=== PATIENT | female | born 1985 | race Caucasian/White ===

== ENCOUNTER → 2018-02-23 18:10 | Observation (INO) ==
[2018-02-23 15:42] LABS: Basophils % 0.4 %; Eosinophils # 0.1 K/mcL (0.0-0.6); Eosinophils % 1.1 %; Hematocrit 36.1 % (35.3-44.9); Hemoglobin 12.6 g/dL (11.5-15.4); Immature Granulocytes % 0.5 % (0-4); Lymphocytes # 1.8 K/mcL (0.6-4.6); Lymphocytes % 15.4 %; Mean Corpuscular HGB Conc 34.9 g/dL (31.6-35.5); Mean Corpuscular Hemoglobin 31.7 pg (28.0-33.3); Mean Corpuscular Volume 90.7 fL (83.0-100.0); Mean Platelet Volume 11.5 fL (9.4-12.4); Monocytes # 0.9 K/mcL (0.0-1.3); Monocytes % 8.1 %; Neutrophils # 8.5 K/mcL (1.6-8.9); Platelet Count 222 K/mcL (140-400); Red Blood Count 3.98 M/mcL (3.82-4.97); Segmented Neutrophils % 74.5 %
[2018-02-23 16:23] LABS: Protein/Creatinine Ratio,Urine 0.14 mg/mg (0.00-0.20)
[2018-02-23 16:24] LABS: Alanine Aminotransferase 10 Units/L (7-52); Aspartate Amino Transferase 16 Units/L (13-39); BUN/Creatinine Ratio 13 (6-26); Blood Urea Nitrogen 7 mg/dL (6-20); Lactate Dehydrogenase 183 Units/L (140-271); Uric Acid 5.4 mg/dL (2.3-7.6); eGFR For African Americans > 60 (> 60); eGFR For Non-African Americans > 60 (> 60)
[2018-02-23 16:36] LABS: Amphetamine Screen,Urine Negative ng/mL (Cutoff=1000); Barbiturate Screen,Urine Negative ng/mL (Cutoff=200); Benzodiazepines Screen,Urine Negative ng/mL (Cutoff=200); Cannabinoid Screen,Urine Negative ng/mL (Cutoff = 50); Cocaine Screen,Urine Negative ng/mL (Cutoff= 300); Opiate Screen,Urine Negative ng/mL (Cutoff=300); Phencyclidine Screen,Urine Negative ng/mL (Cutoff=25)
--- NOTE | 2018-02-23 16:43 | OB/GYN Progress Note ---
Date of Encounter: 02/23/18 Time of Encounter: 16:34 - Assessment and Plan (1) 38 weeks gestation of Current Visit: Yes Status: Acute Signs and symptoms of preeclampsia discussed Labor precautions given Discharge home with instructions to return tomorrow morning for induction of labor (2) Elevated blood pressure affecting in third trimester, antepartum Current Visit: Yes Status: Acute Return tomorrow morning at 8 AM for induction of labor Subjective - Subjective Principal diagnosis: PIH eval Interval history: Ms. Medina presents from the office for PIH evaluation. She denies headache, blurry vision, right upper quadrant pain. In the office her blood pressures were 150/86 and 144/82. She had a BPP of 8 out of 8 her last BRAEDEN was 27. Antepartum ROS: movement normal, no loss of fluid, no vaginal bleeding Objective - Vital Signs Vital Signs: Intake and Output 02/23/18 02/23/18 02/23/18 07:59 15:59 23:59 Other: Weight 155 kg Patient Weight 02/23/18 23:59 Weight 155 kg - Exam FHR: category 1 Auscultation: bilateral: normal Abdomen: Present: normal appearance, soft, gravid Uterus: Present: normal, firm - Labs Labs: Abnormal lab results WBC 11.4 K/mcL (4.3-11.1) H 02/23/18 14:21 Creatinine 0.54 mg/dL (0.60-1.20) L 02/23/18 14:21
[~2018-02-23 18:10] MED LIST: Lidocaine -MPF 1% 2 ML VIAL ONE
== END | disposition home or self-care (01) ==
LOC: 1NENULAB
PROVIDERS: ADMIT Obstetrics & Gynecology; ATTEND Obstetrics & Gynecology

== ENCOUNTER 2018-02-24 11:09 | Inpatient (IN) ==
[2018-02-24] MEDS ORDERED: Naloxone 0.4 MG/ML INJ IVP PRN (11:55)
[2018-02-24] MEDS ORDERED: Metoclopramide 10 MG/2 ML VIAL IVP PRN (11:55)
[2018-02-24] MEDS ORDERED: Lidocaine 1% 20 ML MDV INFILT PRN (11:55)
[2018-02-24] MEDS ORDERED: Famotidine 20 MG/2 ML VIAL IVP PRN (11:55)
[2018-02-24] MEDS ORDERED: *HR* Nalbuphine 10 MG/ML AMPUL IVP PRN (11:55)
[2018-02-24] MEDS ORDERED: D5% in Lactated Ringers 1,000 ML IVC SCH (12:00)
[2018-02-24] MEDS ORDERED: Oxytocin 20 units/ LR 1000 mL 20 UNIT/1,000 ML BAG IVC SCH (12:00)
[2018-02-24 12:29] LABS: Basophils # 0.1 K/mcL (0.0-0.2); Basophils % 0.4 %; Eosinophils # 0.1 K/mcL (0.0-0.6); Eosinophils % 0.9 %; Hematocrit 37.2 % (35.3-44.9); Hemoglobin 12.6 g/dL (11.5-15.4); Immature Granulocytes % 0.4 % (0-4); Lymphocytes # 1.8 K/mcL (0.6-4.6); Lymphocytes % 15.9 %; Mean Corpuscular HGB Conc 33.9 g/dL (31.6-35.5); Mean Corpuscular Hemoglobin 31.4 pg (28.0-33.3); Mean Corpuscular Volume 92.8 fL (83.0-100.0); Mean Platelet Volume 11.9 fL (9.4-12.4); Monocytes # 0.9 K/mcL (0.0-1.3); Monocytes % 7.8 %; Neutrophils # 8.4 K/mcL (1.6-8.9); Platelet Count 200 K/mcL (140-400); Red Blood Count 4.01 M/mcL (3.82-4.97); Segmented Neutrophils % 74.6 %
[2018-02-24 13:09] LABS: Alanine Aminotransferase 10 Units/L (7-52); Aspartate Amino Transferase 19 Units/L (13-39); BUN/Creatinine Ratio 12 (6-26); Blood Urea Nitrogen 7 mg/dL (6-20); Lactate Dehydrogenase 185 Units/L (140-271); eGFR For African Americans > 60 (> 60); eGFR For Non-African Americans > 60 (> 60)
[2018-02-24 13:10] LABS: Protein/Creatinine Ratio,Urine 0.12 mg/mg (0.00-0.20)
[2018-02-24] MEDS ORDERED: miSOPROStol 100 MCG TABLET PO SCH ×2 (13:35→17:00)
[2018-02-24 14:19] LABS: Amphetamine Screen,Urine Negative ng/mL (Cutoff=1000); Barbiturate Screen,Urine Negative ng/mL (Cutoff=200); Benzodiazepines Screen,Urine Negative ng/mL (Cutoff=200); Cannabinoid Screen,Urine Negative ng/mL (Cutoff = 50); Cocaine Screen,Urine Negative ng/mL (Cutoff= 300); Opiate Screen,Urine Negative ng/mL (Cutoff=300); Phencyclidine Screen,Urine Negative ng/mL (Cutoff=25)
--- NOTE | 2018-02-24 16:07 | OB/GYN History & Physical ---
Date of Encounter: 02/24/18 Time of Encounter: 16:02 Assessment and Plan (1) 38 weeks gestation of Current visit: No Status: Acute (2) Elevated blood pressure affecting in third trimester, antepartum Current visit: No Status: Acute Admit labor and delivery Cytotec 2 doses PIH labs negative Nubain and epidural as desired Due to abdominal appearance in recent cellulitic diagnosis and completing oral antibiotics, will place on Ancef Plan of care discussed with Dr. Hermann Sharma History of Present Illness Chief complaint: induction of labor HPI: Ms. Medina is a 32 year old female 38+5 weeks gestation presents to labor and delivery for induction of labor for gestational hypertension and preeclamptic symptoms. Patient reports good movement, denies any vaginal bleeding or leaking of fluid. complicated by maternal obesity, polyhydramnios last BRAEDEN 27 on 02/23, and maternal lower abdomen cellulitis infection area patient just finished 14 day course of Keflex yesterday. Labs: O+, rubella immune, GBS negative, all other serologies negative Past Med Surg Social Fam HX - Past Medical History Medical history: hypertension, other Additional medical history: hx of gallstones during this . HX of chronic HTN. [place] teeth extraction appx 10 years ago Psychiatric history: no psych history - Past Surgical History Surgical History: no surgical history - Social History Smoking Status: Never smoker Smokeless Tobacco Status: No Alcohol use: none Drug use: none - Family History Mother Hx Family Endocrine Disorder: Yes (Type II diabetes) Obstetrical History - Pregnancies : 1 Para: 0 Term: 0 : 0 Ab's: 0 Livin Medications and Allergies Tylenol 500 mg PO DANIELLA PRN 07/18/17 [History] DiphenhydraMINE [Benadryl] 25 mg PO HS PRN 02/23/18 [History] Vit Calc,Iron,Folic [ Vitamins] 1 each PO DAILY 02/23/18 [ History] 3 Allergy/AdvReac Type Severity Reaction Status Date / Time No Known Allergies Allergy Verified 02/23/18 14:59 Exam - Vital Signs Vital signs: Initial Vital Signs Temp Pulse Resp BP 98.1 F 100 20 137/79 02/24/18 12:02 02/24/18 12:02 02/24/18 12:02 02/24/18 12:02 - Constitutional Constitutional: well developed, well nourished, morbidly obese - Neck Neck exam: full ROM - Lungs Respiratory exam: CTAB - Cardiovascular Cardiovascular exam: RRR - Abdomen Abdomen: Present: gravid, non tender - Extremities Extremities exam: normal capillary refill, normal inspection - Cervix Dilation: 1 Effacement: 60 Station: -2 - Uterus Uterus exam: Present: normal size, normal contour - Comments Comments: Lower abdomen reddened with tight tissue with edema Results Result Diagrams: 02/24/18 12:15 02/24/18 12:15 Abnormal lab results WBC 11.3 K/mcL (4.3-11.1) H 02/24/18 12:15 Creatinine 0.57 mg/dL (0.60-1.20) L 02/24/18 12:15 All other labs normal. - VTE Reasons for not Prescribing Prophylaxis: Treatment not Indicated - Low risk for VTE
[2018-02-24] MEDS ORDERED: ceFAZolin 2,000 MG in 0.9 % Sodium Chloride 100 ML IVPB ONE (16:35)
[2018-02-24] MEDS ORDERED: EPHEDrine 50 MG/ML VIAL IVP PRN (16:57)
--- NOTE | 2018-02-24 16:57 | Anesthesia Evaluation PreOp ---
Date of Encounter: 02/24/18 Time of Encounter: 16:54 - Past History Planned Operation: GREGG Cardiac History: HTN (during this . PIH eval yesterday. Induced today. 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 Other Medical History: Denies Any Significant HX Anesthesia History: No Prior Anesthetic Complications, Past Anesthesia : Yes Alcohol Use: none Drug use: none Medications and Allergies Tylenol 500 mg PO DANIELLA PRN 07/18/17 [History] DiphenhydraMINE [Benadryl] 25 mg PO HS PRN 02/23/18 [History] Vit Calc,Iron,Folic [ Vitamins] 1 each PO DAILY 02/23/18 [ History] 3 Allergy/AdvReac Type Severity Reaction Status Date / Time No Known Allergies Allergy Verified 02/23/18 14:59 - Meds/Allergy Pre-op Review Medications Reviewed: Yes Allergies Reviewed: Yes Beta Blockers on Current Med List: No Anesthesia Results - Labs 02/24/18 12:15 02/24/18 12:15 Anesthesia Exam O2 Sat Height 1.65 m Weight 154.4 kg Vital Signs Temp Pulse Resp BP 98.1 F 100 20 137/79 02/24/18 12:02 02/24/18 12:02 02/24/18 12:02 02/24/18 12:02 NPO (# of Hours): 4 Pain Scale: 1 Pain Scale Used: Numeric (1 - 10) - HEENT Pupil (Motor): Pupils equal Mallampati: III Teeth: Normal Oral Opening: Greater than 3 - BEAM BUILDER HELPER LOC: Oriented BEAM BUILDER HELPER Motor: Normal RUE, Normal LUE, Normal RLE, Normal LLE, Normal Face [employer] Sensory: Normal: RUE, LUE, RLE, LLE, Face - Cardiac Rhythm: Regular Murmur: None JVD: No Carotid Bruit: No - Pulmonary Breath Sounds: bilateral Clear Respiratory Effort: Symmetrical Anesthesia Assess/Plan ASA Score: 3 (BMI 56.6) Modified [place] Scale for Level of Consciousness: Cooperative, oriented, and tranquil Anesthetic Plan: General (plan b), Regional (plan a) Autologous Blood: Yes Monitoring Plan: Standard Monitors
[2018-02-24] MEDS ORDERED: Epidural Premix (fent/bupiv) 110 ML EP SCH (17:00)
--- NOTE | 2018-02-24 19:30 | OB Labor Progress Note ---
Date of Encounter: 02/24/18 Time of Encounter: 19:26 Labor Progress Note - Subjective Subjective: Pt states feeling more contractions - Cervix Cervix: 4/75/-2 - Heart Tones Heart Tones: 120/moderate/+accels/-decels - Interventions Interventions: FSE placed and AROM at 1834 for large amount of clear fluid - Plan Plan: Start pitocin per policy ancef for cellulits anticipate
[2018-02-24] MEDS ORDERED: Ringers Solution, Lactated 1,000 ML ONE ×2 (20:19→20:30)
[2018-02-24] MEDS ORDERED: Lidocaine -MPF 1% 5 ML AMPUL ONE (21:04)
--- NOTE | 2018-02-24 21:48 | Anesthesia Procedures ---
Date of Encounter: 02/24/18 Time of Encounter: 21:46 Procedures: Anesthesia - Epidural/Spinal Patient ID/Chart reviewed: Yes Patient examined: Yes OB Eval: Gestational age: 38.5 OB Eval: : 1 OB Eval: Hx Para: 0 OB Eval: Dilated at (cm): 4 OB Eval: Contractions: Non-stressed pattern Consent Obtained: Yes Supplemental Oxygen: None/Room Air Site Prep: Aseptic Technique, Sterile prep and drape, Povidone-Iodine 1% Patient position: upright Local Anesthetic: Lidocaine 1% Amount of Local Anesthetic used: 3 Touhy Needle Gauge: 18 Touhy Needle Depth (cm): 10 Catheter Depth at Skin (cm): 20 Test Dose (1.5% Lido + Epi): Volume given (mls): 5 Test Dose Result: Negative Loading Dose: Other: 10mls of epidural pharm bag premix solution Loading Dose Administered: Thru Catheter Infusion Med: 0.125% Bupivacaine w/ 2 mcg/ml Fentanyl Infusion Rate (mls/hr): 14 ([id number] pcea) Catheter Secured in Place: Tegaderm, Tape Interspace Used: L3-L4 Loss of Resistance (FRANCISCA): Yes Blood: No CSF: No Paresthesia: No Procedure: pt tolerated procedure well. no complications. vss. fhr stable. see nursing notes for complete vitals. easy epidural placement.
[2018-02-25] MEDS ORDERED: Ringers Solution, Lactated 1,000 ML ONE ×4 (00:15→21:31)
[2018-02-25] MEDS: ceFAZolin 1,000 MG in 0.9 % Sodium Chloride Mini Bag 100 ML IVPB SCH ×3 (00:17→16:41)
--- NOTE | 2018-02-25 01:31 | OB Labor Progress Note ---
Date of Encounter: 02/25/18 Time of Encounter: 01:29 Labor Progress Note - Subjective Subjective: Pt comfortable with epidural - Vital Signs Vital Signs: 127/74 - Heart Tones Heart Tones: 125/moderate/+accels/-decels - [place] Bowleys Quarters: 2-5 - Plan Plan: Continue pitocin per policy Frequent repositioning with peanut ball ancef for cellulitus Anticipate
[2018-02-25] MEDS ORDERED: *HR* FentaNYL (PF) 100 MCG/2 ML VIAL ONE ×2 (07:06→21:26)
[2018-02-25] MEDS ORDERED: *HR* Ropivacaine/PF 0.2% 20 ML VIAL ONE (07:06)
--- NOTE | 2018-02-25 07:13 | Anesthesia Progress Note ---
Date of Encounter: 02/25/18 Time of Encounter: 07:12 Anesthesia Note - Note Note: 02/25/18 07:12 epidural bolus for breakthrough pain fentanyl 100 mcg ropivicaine 0.2% 5cc
--- NOTE | 2018-02-25 07:23 | OB Labor Progress Note ---
Date of Encounter: 02/25/18 Time of Encounter: 07:22 Labor Progress Note - Subjective Subjective: Comfortable with epidural - Cervix Cervix: 7-8 per RN - Heart Tones Heart Tones: 130/moderate/+accels/-decels - [place]: 2-3 - Plan Plan: Continue pitocin per policy Ancef for cellulitis anticipate
--- NOTE | 2018-02-25 14:49 | OB Labor Progress Note ---
Date of Encounter: 02/25/18 Time of Encounter: 14:45 Labor Progress Note - Subjective Subjective: Patient c/o pain when on peanut ball, but does not feel pain when sitting up. - Vital Signs Vital Signs: Stable - Cervix Cervix: 8/100/-1 anterior portion of cervix is no longer present. - Heart Tones Heart Tones: 155 - [place] Wor[place]: Contractions every [address] Adequate labor pattern - Plan Plan: Continue routine labor management Ancef infusing as ordered for cellulitis of pannus Encouraged frequent position changes with peanut ball Pitocin titrated as needed for adequate labor Anticipate vaginal delivery POC per consult with Dr Wesley
--- NOTE | 2018-02-25 18:57 | OB Labor Progress Note ---
Date of Encounter: 02/25/18 Time of Encounter: 18:52 Labor Progress Note - Subjective Subjective: Patient resting in bed with epidural in place. She states that she is having pressure in her vagina. - Vital Signs Vital Signs: VSS - Cervix Cervix: 9/100/0 caput increased, skull is at 0 station. - Heart Tones Heart Tones: 155 category II tracing, minimal to moderate variability with accels. NO decels present - [place]: IUPC in place. Contractions every 2 minutes - Interventions Interventions: Austin bulb advanced past head - Plan Plan: Continue routine labor management GBS negative Ancef for cellulitus of panus Pitocin titrate for adequate labor Anticipate vaginal delivery POC per consult with Dr Wesley
[2018-02-25] MEDS ORDERED: Epidural Premix (fent/bupiv) 110 ML EP ONE (20:29)
--- NOTE | 2018-02-25 21:32 | Anesthesia Progress Note ---
Date of Encounter: 02/25/18 Time of Encounter: 21:31 Anesthesia Note - Note Note: 02/25/18 21:31 rebolus for breakthroiugh pain ropivicaine 0.2% 5cc fentanyl 100 mcg
[2018-02-26] MEDS: ceFAZolin 1,000 MG in 0.9 % Sodium Chloride Mini Bag 100 ML IVPB SCH (00:35)
[2018-02-26] MEDS ORDERED: Ringers Solution, Lactated 1,000 ML ONE ×3 (01:38→08:45)
--- NOTE | 2018-02-26 05:06 | Anesthesia Progress Note ---
Date of Encounter: 02/26/18 Time of Encounter: 05:06 Anesthesia Note - Note Note: 02/26/18 05:06 rebolus ropivicaine 0.2% 6cc
--- NOTE | 2018-02-26 05:26 | OB Labor Progress Note ---
Date of Encounter: 02/26/18 Time of Encounter: 05:21 Labor Progress Note - Subjective Subjective: I presented to the patient's room to evaluate her strip due to late decels - Vital Signs Vital Signs: VSS - Cervix Cervix: +1 station - Heart Tones Heart Tones: CAT 2 tracing resolved to CAT 1 with resuscitative maneuvers - Plan Plan: sequence of events: AROM @ 1834hrs 6/8 complete @1134hrs 6/8 started pushing @1215AM CAT tracing between 1-2AM, break taken for 1 hr started pushing CAT tracing between 4-5AM, (mod paige with paige/late decels) resuscitative measures taken with resolution, the plan for now is to have the patient rest for an hr before restarting pitocin.
[2018-02-26] MEDS ORDERED: Lidocaine/EPI 1:200k 2% PF 20 ML VIAL ONE (08:19)
[2018-02-26] MEDS ORDERED: *HR* Phenylephrine 10 MG/ML VIAL ONE (08:45)
[2018-02-26] MEDS ORDERED: *HR* Oxytocin 10 UNIT/ML VIAL IM ONE ×2 (08:47→10:01)
[2018-02-26] MEDS ORDERED: Morphine Sulfate/PF 5mg/10mL Vial ONE (09:24)
[2018-02-26] MEDS ORDERED: *HR* HYDROmorphone (PF) 1 MG/ML SYRINGE IVP PRN ×2 (09:30→21:07)
[2018-02-26] MEDS ORDERED: *HR* Meperidine 25 MG/ML SYRINGE IVP PRN (09:30)
[2018-02-26] MEDS ORDERED: Acetaminophen IV 1,000 MG/100 ML INFUS..BTL IVPB ONE (09:30)
[2018-02-26] MEDS ORDERED: *HR* Promethazine 25 MG/ML VIAL IVP PRN (09:30)
[2018-02-26] MEDS ORDERED: *HR* FentaNYL (PF) 100 MCG/2 ML VIAL ONE (09:34)
[2018-02-26] MEDS ORDERED: Piperacillin/Tazobactam 3.375 GM in 0.9 % Sodium Chloride Mini Bag 100 ML IVPB ONE ×2 (10:06→10:15)
[2018-02-26] MEDS ORDERED: *HR* Meperidine 50 MG/ML SYRINGE IVP PRN (10:15)
--- NOTE | 2018-02-26 10:31 | OB/GYN Procedure Note ---
Section - Date of procedure: 02/26/18 Preop diagnosis: category 2 FHT tracing, other (arrest of descent) Post-op diagnosis: same Procedure: section, primary low transverse Surgeon: Winston Damon Blood Loss: 500 Was there an medical assistant secretary present: Yes Tv Production Assistant: Nkechi Pelayo Separations Scientist: Joseph Lagunas Anesthesia Type: Epidural section complications: none Disposition: L&D Recovery Room Specimens: Placenta - Infant (s) A Delivery Date: 02/26/18 Delivery Time: 09:39 Presentation: vertex Position: unknown Gender: Male Gram Weight: 3.95 kg at 1 minute: 9 at 5 minutes: 9 Shoulder Dystocia: not encountered Placenta: complete extraction - Narrative Narrative: Patient was brought to the operating room with satisfactory epidural anesthesia. The abdomen was prepped and draped in a sterile fashion. A Pfannenstiel incision was made and carried sharply down to the level of fascia. The fascia was incised transversely. The fascia was dissected away from the underlying rectus muscles. With sharp and blunt dissection, rectus muscles were divided in midline. The peritoneum was entered bluntly. The incision was carried vertically with scissors. Bladder retractor was placed to protect the bladder. The lower uterine segment was entered sharply with a scalpel. Incision was manually extended. Meconium stained amniotic fluid was encountered. The infant's head was pulled up and delivered easily as were the shoulders and body. The mouth and oropharynx were suctioned. The cord was clamped and cut. The infant was passed off to the waiting hide buyer in satisfactory condition. APGARS 9/9. Placenta was extracted completely and found to be intact. Uterus was explored and found to be empty. Intravenous Pitocin was administered. Clamps were placed about the margins of the uterine incision, which was closed primarily with a running locking stitch of 0 Vicryl with adequate hemostasis. Secondary running locking stitch was placed for extra strength to the wound. The fascia was closed with a simple running stitch of 0 PDS. The subcutaneous tissue was closed with 3-0 vicryl. The skin was closed with running subcuticular of 4-0 vicryl. Patient was brought to the recovery room in satisfactory condition. There were no complications. There was 500 cc of blood loss. All sponge, needle, and instrument counts were reported to be correct.
[2018-02-26] MEDS ORDERED: *HR* Meperidine 50 MG/ML SYRINGE IVP ONE (11:00)
--- NOTE | 2018-02-26 11:26 | Anesthesia Evaluation Post Op ---
Date of Encounter: 02/26/18 Time of Encounter: 11:24 - Vital Signs Vital Signs: vss - Lungs Lungs: Clear Ascult./Percussion - Airway Airway: Non-obstructed - Mental Status Mental Status: Alert & Oriented, Answers Appropriately - Pain Pain Scale used: Leonardo (Faces) - Nausea Vomiting Nausea Vomiting: Not Present - Hydration Hydration: Austin catheter - Discharge PostOp Status: Transfer Patient to floor
[2018-02-26] MEDS ORDERED: Sennosides 8.6 MG TABLET PO PRN (13:15)
[2018-02-26] MEDS ORDERED: OXYCODONE Oral CONC 10 MG/0.5 ML ORAL.SYG SL PRN (13:15)
[2018-02-26] MEDS ORDERED: Metoclopramide 10 MG/2 ML VIAL IVP PRN (13:15)
[2018-02-26] MEDS ORDERED: Ondansetron 4 MG/2 ML VIAL IVP PRN (13:15)
[2018-02-26] MEDS ORDERED: Oxytocin 20 units/ LR 1000 mL 20 UNIT/1,000 ML BAG IVC SCH (13:15)
[2018-02-26] MEDS ORDERED: Simethicone 80 MG TAB.CHEW PO PRN (13:15)
[2018-02-26] MEDS ORDERED: Ringers Solution, Lactated 1,000 ML IVC SCH (13:15)
[2018-02-26] MEDS: Piperacillin/Tazobactam 3.375 GM in 0.9 % Sodium Chloride Mini Bag 100 ML IVPB SCH (18:19)
[2018-02-27] MEDS: Piperacillin/Tazobactam 3.375 GM in 0.9 % Sodium Chloride Mini Bag 100 ML IVPB SCH ×2 (01:56→09:33)
[2018-02-27 06:12] LABS: Basophils # 0.1 K/mcL (0.0-0.2); Basophils % 0.3 %; Eosinophils # 0.4 K/mcL (0.0-0.6); Eosinophils % 2.1 %; Hematocrit 28.8 % (35.3-44.9); Immature Granulocytes % 0.5 % (0-4); Lymphocytes % 11.9 %; Mean Corpuscular HGB Conc 33.7 g/dL (31.6-35.5); Mean Corpuscular Hemoglobin 31.4 pg (28.0-33.3); Mean Corpuscular Volume 93.2 fL (83.0-100.0); Mean Platelet Volume 11.4 fL (9.4-12.4); Monocytes # 1.1 K/mcL (0.0-1.3); Monocytes % 6.8 %; Neutrophils # 13.1 K/mcL (1.6-8.9); Platelet Count 173 K/mcL (140-400); Red Blood Count 3.09 M/mcL (3.82-4.97); Red Cell Distribution Width 14.4 % (11.5-14.5); Segmented Neutrophils % 78.4 %
[2018-02-27 06:18] LABS: Hemoglobin 9.7 g/dL (11.5-15.4)
--- NOTE | 2018-02-27 07:05 | OB/GYN Progress Note ---
Date of Encounter: 02/27/18 Time of Encounter: 07:03 - Assessment and Plan (1) S/P section Current Visit: Yes Status: Acute Pt meeting POD#1 milestones. Await ambulation and spontaneous void. (2) Cellulitis of abdominal wall Current Visit: Yes Status: Acute Cellulitis diagnosed a few weeks ago. Improved with ancef during labor. Incision without s/sx infection. Continue IV antibiotics 24 hours and then switch to PO Keflex and zithromax. (3) Elevated blood pressure affecting in third trimester, antepartum Current Visit: No Status: Acute BP normal (4) Breast feeding status of mother Current Visit: Yes Status: Acute consult today. Subjective - Subjective Interval history: Austin removed this am. Pt has stood beside bed but has not yet ambulated. She reports some incisional pain but she is trying not to take anything but ibuprofen due to pain medication making her drowsy. Patient reports: appetite normal, pain well controlled [place]: doing well Objective - Vital Signs Latest vital signs: Vital Signs Temp Pulse Resp BP Pulse Ox 02/27/18 02:54 98.4 F 93 14 106/68 96 02/26/18 23:27 97.9 F 92 18 100/68 98 02/26/18 19:55 97.7 F 76 16 101/66 97 02/26/18 16:15 97.6 F 74 16 109/72 98 02/26/18 15:25 97.5 F L 85 16 105/69 98 02/26/18 14:15 97.6 F 73 14 103/67 98 02/26/18 13:45 97.9 F 68 17 117/70 98 02/26/18 13:15 97.6 F 73 16 115/68 96 Intake and Output 02/26/18 02/26/18 02/27/18 15:59 23:59 07:59 Intake Total 950 / 950 Output Total 525 / 525 500 / 500 1700 / 1700 Balance -525 / -525 450 / 450 -1700 / -1700 Intake: IV Fluids 100 / 100 Zosyn 3.375 GM In 0.9 % Sodium 100 / 100 Chloride (Mini-Bag +) 100 ML @ 25 mls/hr IVPB Q[facility]H [facility] Rx#: [id number] Oral 850 / 850 Output: Catheter 525 / 525 500 / 500 1700 / 1700 Other: Weight 161.161 kg - Exam Lungs: bilateral: normal Chest: Normal S1, Normal S2 Extremities: Present: edema (2+ pitting edema to knees) Abdomen: Present: soft Incision: Present: dry, intact Uterus: Present: firm (difficult to palpate due to maternal habitus) - Labs Labs: Laboratory Results - last 24 hr 02/27/18 05:58 WBC 16.7 H RBC 3.09 L Hgb 9.7 L D Hct 28.8 L MCV 93.2 MCH 31.4 MCHC 33.7 RDW 14.4 Plt Count 173 MPV 11.4 Immature Gran % 0.5 Seg Neutrophils % 78.4 Lymphocytes % 11.9 Monocytes % 6.8 Eosinophils % 2.1 Basophils % 0.3 Neutrophils # 13.1 H Lymphocytes # 2.0 Monocytes # 1.1 Eosinophils # 0.4 Basophils # 0.1
[2018-02-27] MEDS: Prenatal Vit/FA 1 EACH TABLET PO SCH (09:32)
[2018-02-27] MEDS: *HR* OxyCODONE/APAP 5/325 TABLET PO PRN ×3 (12:45→23:25)
[2018-02-27] MEDS: Ibuprofen 600 MG TABLET PO PRN (18:57)
[2018-02-27] MEDS: Azithromycin 250 MG TABLET PO SCH (20:41)
[2018-02-27] MEDS: cephALEXin 500 MG CAPSULE PO SCH (20:41)
[2018-02-28] MEDS: Ibuprofen 600 MG TABLET PO PRN ×2 (02:23→09:32)
[2018-02-28 09:16] VITALS: BP 132/89
[2018-02-28] MEDS: cephALEXin 500 MG CAPSULE PO SCH (09:32)
[2018-02-28] MEDS: Azithromycin 250 MG TABLET PO SCH (09:32)
[2018-02-28] MEDS: Prenatal Vit/FA 1 EACH TABLET PO SCH (09:33)
--- NOTE | 2018-02-28 09:56 | Discharge Summary ---
Date of Encounter: 02/28/18 Time of Encounter: 09:51 - Discharge Diagnosis (1) anemia Priority: Secondary Status: Acute Comments: Continue iron twice a day through visit (2) Breast feeding status of mother Priority: Secondary Status: Acute Comments: Community resources provided (3) Cellulitis of abdominal wall Priority: Secondary Status: Acute Comments: Continue antibiotics as prescribed for 2 weeks (4) S/P section Priority: Primary Status: Acute Comments: Pain well controlled with by mouth pain meds Vital signs stable Tolerating regular diet Voiding independently Passing flatus, but no BM yet Ambulating independently Lochia light Discharge home today - Discharge Medications Prescriptions: OxyCODONE/APAP 5/325 [Percocet 5/325 MG] 1 each PO Q4HR PRN 5 Days #30 tablet PRN Reason: Moderate pain 4-6 Ibuprofen [Motrin] 600 mg PO Q6HR PRN #30 tablet PRN Reason: Cramping Azithromycin [Zithromax] 500 mg PO DAILY 7 Days #7 tablet cephALEXin [Keflex] 500 mg PO BID 7 Days #14 capsule Docusate [Colace] 100 mg PO BID #60 capsule Ferrous Sulfate 325 mg PO BID 30 Days #60 tablet Home Medications: Tylenol 500 mg PO DANIELLA PRN 07/18/17 [History] DiphenhydraMINE [Benadryl] 25 mg PO HS PRN 02/23/18 [History] Vit Calc,Iron,Folic [ Vitamins] 1 each PO DAILY 02/23/18 [ History] Azithromycin [Zithromax] 500 mg PO DAILY 7 Days #7 tablet 02/28/18 [Rx] Docusate [Colace] 100 mg PO BID #60 capsule 02/28/18 [Rx] Ferrous Sulfate 325 mg PO BID 30 Days #60 tablet 02/28/18 [Rx] Ibuprofen [Motrin] 600 mg PO Q6HR PRN #30 tablet 02/28/18 [Rx] OxyCODONE/APAP 5/325 [Percocet 5/325 MG] 1 each PO Q4HR PRN 5 Days #30 tablet [Rx] cephALEXin [Keflex] 500 mg PO BID 7 Days #14 capsule 02/28/18 [Rx] Allergies/Adverse Reactions: 3 Allergy/AdvReac Type Severity Reaction Status Date / Time No Known Allergies Allergy Verified 02/23/18 14:59 Data Procedures and tests throughout hospitalization: Laboratory Tests 02/24/18 02/24/18 02/24/18 11:37 11:37 11:37 WBC RBC Hgb Hct MCV MCH MCHC RDW Plt Count MPV Immature Gran % Seg Neutrophils % Lymphocytes % Monocytes % Eosinophils % Basophils % Neutrophils # Lymphocytes # Monocytes # Eosinophils # Basophils # BUN Creatinine Est GFR ( Amer) Est GFR (Non-Af Amer) BUN/Creatinine Ratio Uric Acid AST ALT Lactate Dehydrogenase Urine Creatinine 57 Protein/Creatinin Ratio 0.12 Urine Total Protein 7 Urine Opiates Screen Negative Ur Barbiturates Screen Negative Ur Phencyclidine Scrn Negative Ur Amphetamines Screen Negative U Benzodiazepines Scrn Negative Urine Cocaine Screen Negative U Marijuana (THC) Screen Negative Blood Type O POSITIVE Antibody Screen NEGATIVE Crossmatch See Detail 02/24/18 02/24/18 02/27/18 12:15 12:15 05:58 WBC 11.3 H 16.7 H RBC 4.01 3.09 L Hgb 12.6 9.7 L D Hct 37.2 28.8 L MCV 92.8 93.2 MCH 31.4 31.4 MCHC 33.9 33.7 RDW 14.0 14.4 Plt Count 200 173 MPV 11.9 11.4 Immature Gran % 0.4 0.5 Seg Neutrophils % 74.6 78.4 Lymphocytes % 15.9 11.9 Monocytes % 7.8 6.8 Eosinophils % 0.9 2.1 Basophils % 0.4 0.3 Neutrophils # 8.4 13.1 H Lymphocytes # 1.8 2.0 Monocytes # 0.9 1.1 Eosinophils # 0.1 0.4 Basophils # 0.1 0.1 BUN 7 Creatinine 0.57 L Est GFR ( Amer) > 60 Est GFR (Non-Af Amer) > 60 BUN/Creatinine Ratio 12 Uric Acid 6.0 AST 19 ALT 10 Lactate Dehydrogenase 185 Urine Creatinine Protein/Creatinin Ratio Urine Total Protein Urine Opiates Screen Ur Barbiturates Screen Ur Phencyclidine Scrn Ur Amphetamines Screen U Benzodiazepines Scrn Urine Cocaine Screen U Marijuana (THC) Screen Blood Type Antibody Screen Crossmatch Labs on day of discharge: Labs from last 24 hours 02/24/18 11:37 Crossmatch See Detail Date of admission: 02/24/18 11:09 Primary care physician: PCP NONE Discharging clinician: Janet Arreguin Anticipated date of discharge: 02/28/18 - Patient Status Disposition: Home, Self-Care Condition: Good Functional capacity at discharge: independent ambulation Overall status at discharge: patient is progressing back to baseline - Discharge Instructions Follow Up With: NONE,PCP [Primary Care Provider] - Rubi Medrano MD [Partnered Physician] - - Diet and Activity Activity: increase activity as tolerated Diet: regular diet Hospital Course Reason for admission: induction of labor, IUP at term Delivery: section Episiotomy: none Laceration: none Other procedures: none complications: other (Pre-existing cellulitis) Discharge diagnosis: IUP at term delivered baby: female Time Attestation: Total time spent providing and/or coordinating discharge services: Time Spent: Less than 30 minutes - VTE Reasons for not Prescribing Prophylaxis: Treatment not Indicated - Low risk for VTE Documentation of Mechanical Device: Graduated compression elastic hosiery Exam - Constitutional Vitals: Temp Pulse Resp BP Pulse Ox 98.3 F 90 16 132/89 98 02/28/18 09:15 02/28/18 09:15 02/28/18 09:15 02/28/18 09:15 02/27/18 19:45 General appearance IM: A&O X 3 - Respiratory Respiratory exam: Present: CTAB - Cardiovascular Cardiovascular exam IM: Present: RRR, +S1, +S2 - GI/Abdominal GI/Abdominal exam IM: normal bowel sounds, no peritoneal signs Incision: normal, dry, intact - Rectal Rectal exam: deferred - Uterine Tone: Firm Uterus Position: At Umbilicus, Midline - Extremities Exam Extremities exam IM: Present: normal capillary refill, normal inspection, pedal edema, radial pulses palpable and symmetrical - Neurological Exam Neurological exam: alert, normal gait, oriented X3, reflexes normal, no focal deficits - Psychiatric Additional comments: Signs and symptoms of depression discussed and patient verbalized understanding of when to call for help. - Other Additional findings: Breasts: Soft, nontender. Nipples intact without erythema.
== END 2018-02-28 10:25 | disposition home or self-care (01) | DRG 540 ==
LOC: 1NENULAB 11:09 → 1NENUOBS 02-26 13:09
PROVIDERS: ADMIT Obstetrics & Gynecology; ATTEND Obstetrics & Gynecology